=== PATIENT | male | born 1995 | race Caucasian/White ===

== ENCOUNTER 2018-06-09 21:44 | Emergency (ER) | payer OTHER ==
--- NOTE | 2018-06-09 23:19 | EDPHY ---
General - History Smoking Status: Never smoked Time Seen by Provider: 06/09/18 22:20 Narrative: CLINICAL IMPRESSION: Right thumb laceration x2 ASSESSMENT/PLAN: 22-year-old male presents to the emergency department with 2 lacerations to the right thumb sustained when opening a beer bottle tonight. Full range of motion of the thumb, distal 2 point discrimination intact, no evidence of neurovascular injury, tetanus up-to-date. No evidence of retained foreign body on exam. Wound repaired as per chart notes below. Wound care discussed, signs and symptoms of infection reviewed, warning signs return to ED sooner outlined in discharge. DIFFERENTIAL DIAGNOSIS: includes but not limited to laceration of tendon or vascular structure, underlying fracture, laceration with retained FB ED PROCECURES: Laceration Repair - right thumb 1. Verbal consent obtained by patient. Risks discussed, including but not limited to infection, pain, retained foreign body, need for additional repair, poor cosmetic result, tendon damage, nerve damage, poor wound healing, vascular damage. Alternatives to repair discussed. [place] protocol used to establish correct patient, procedure, equipment, accounting support specialist, and site. Anesthesia obtained by digital nerve block at 1st MCP joint Anesthetized with 0.5% bupivacaine without epinephrine Laceration location right thumb, length 1.5 cm, depth 3 mm, Repair type simple. Patient was prepped and draped in usual sterile fashion. Hemostasis achieved with direct pressure. Wound explored through full range of motion and entire depth of wound probed and visualized with gloved finger. No suspicion for nerve damage, tendon damage, underlying fracture, vascular damage, foreign body, or contamination. Area was cleansed with Shur-Clens and irrigated with sterile saline as per protocol. No foreign body or material removed. Repair method 5-0 Prolene sutures, simple interrupted. 3 sutures placed. Well aligned, closely approximated. wound was dressed with bacitracin and bandage. Patient tolerated well with no immediate complications. Wound care: Clean and dry x 24 hours, gently clean with soap and water, cover with topical antibiotic ointment/bandage. Suture/Staple removal: 8-10 Days Laceration Repair - right thumb 2. Verbal consent obtained by patient. Risks discussed, including but not limited to infection, pain, retained foreign body, need for additional repair, poor cosmetic result, tendon damage, nerve damage, poor wound healing, vascular damage. Alternatives to repair discussed. [place] protocol used to establish correct patient, procedure, equipment, accounting support specialist, and site. Anesthesia obtained by digital nerve block at 1st MCP joint Anesthetized with 0.5% bupivacaine without epinephrine Laceration location right thumb, length 1.5 cm, depth 3 mm, Repair type simple. Patient was prepped and draped in usual sterile fashion. Hemostasis achieved with direct pressure. Wound explored through full range of motion and entire depth of wound probed and visualized with gloved finger. No suspicion for nerve damage, tendon damage, underlying fracture, vascular damage, foreign body, or contamination. Area was cleansed with Shur-Clens and irrigated with sterile saline as per protocol. No foreign body or material removed. Repair method 5-0 Prolene sutures, simple interrupted. Four sutures placed. Well aligned, closely approximated. wound was dressed with bacitracin and bandage. Patient tolerated well with no immediate complications. Wound care: Clean and dry x 24 hours, gently clean with soap and water, cover with topical antibiotic ointment/bandage. Suture/Staple removal: 8-10 Days CHIEF COMPLAINT: Laceration HPI: 22-year-old [id number] male presents to the emergency department with 2 lacerations to the right thumb after cutting his hand on a beer bottle tonight. Patient reports no numbness or loss of sensation to the thumb. Tetanus is up-to-date. He goes to the [employer] and is here visiting friends. No other injuries PAST MEDICAL HISTORY: None reported Pertinent Past Surgical History: None reported Social History: Student at the [employer], tetanus up-to-date REVIEW OF SYSTEMS: All other systems negative Constitutional: No fever, no chills Musculoskeletal: No deformity, no joint pain Skin: 2 lacerations right thumb Neurological: No sensory loss or weakness, 2 point discrimination intact. PHYSICAL EXAM: General Appearance: Alert, oriented, appropriate for age, cooperative, NAD, well hydrated, non-toxic appearing, VSS, no hypoxia. Neurological: Alert and oriented x 3 Skin: 2 lacerations to the volar aspect of the right thumb. Both lacerations measuring 1.5 cm Musculoskeletal: Full range of motion of the thumb. No evidence of neurovascular compromise. Two-point discrimination intact. MEDICAL DECISION MAKING: Patient was seen independently. Secondary supervising physician at time of evaluation was Dr. velazco . Diagnosis: Right thumb laceration. New, requires workup Summary: See assessment and plan for summary of ED visit Patient Progress improved, stable for discharge . (Marko Avila) PHYSICIAN DOCUMENTATION: The patient was evaluated and managed by the Physician Commutator Inspector. My co- signature indicates that I have reviewed this chart and I agree with the findings and plan of care as documented. I am the secondary supervising physician. (Génesis Velazco) - Objective Vital Signs: Initial Vital Signs Temperature (C) 37.0 C 06/09/18 21:46 Heart Rate 96 06/09/18 21:46 Respiratory Rate 18 06/09/18 21:46 Blood Pressure 142/89 H 06/09/18 21:46 O2 Sat (%) 98 06/09/18 21:46 O2 Delivery Mode Room Air Allergies/Adverse Reactions: No Known Allergies Allergy (Unverified 06/09/18 21:48) Home Medications: Medication Instructions Recorded NK [No Known Home Meds] 06/09/18 Departure - Departure Disposition: Home, Routine, Self-Care Clinical Impression: Laceration of thumb Condition: Good Instructions: Laceration (ED) Additional Instructions: DISCHARGE INSTRUCTIONS FROM YOUR DOCTOR Thank you for visiting our emergency department today. You were treated by a physician dental office assistant today and your case was reviewed with our ED Attending physician. Please keep in mind that discharge from the emergency department does not mean that there is nothing wrong - it simply means that we have not identified an emergency condition that requires further evaluation or treatment in the hospital. You should always plan to follow up with primary care for re- evaluation of your condition in the next 2-3 days. If you have been referred to a specialist, please call as soon as possible (today or tomorrow) to schedule your follow up appointment at the appropriate time. [ PLEASE HAVE SUTURES/ALYSON REMOVED IN 8-10 DAYS. YOU CAN RETURN TO THE EMERGENCY DEPARTMENT OR YOUR PRIMARY CARE FOR SUTURE/STAPLE REMOVAL. AVOID SUBMERGING SUTURES/ALYSON UNDERWATER FOR PROLONGED PERIOD OF TIME UNTIL REMOVED. KEEP WOUND CLEAN AND DRY, COVER WITH ANTIBIOTIC OINTMENT AND BAND-AID. RETURN TO EMERGENCY DEPARTMENT FOR REDNESS, SWELLING, DISCHARGE, WARMTH TO THE SKIN, OR ANY OTHER CONCERNS FOR INFECTION. ] People present with illnesses and injuries in different ways, and it is always possible that we have missed something. You may always return for re-evaluation if symptoms worsen or if they are not improving or if you develop new/different symptoms. Again, thank you for choosing our emergency department. We hope that you feel better. Referrals: NONE *PRIMARY CARE P,. [Primary Care Provider] - As per Instructions Yenifer Dillard MD [Medical Doctor] - As per Instructions
[2018-06-09 23:28] VITALS: BP 122/63
== END 2018-06-09 23:29 | disposition home or self-care (01) ==
PROC: 0HQFXZZ Repair Right Hand Skin, External Approach (ICD-10-PCS; principal; 2018-06-09)
DX: S61.011A Laceration without foreign body of right thumb without damage to nail, initial encounter (principal); W25.XXXA Contact with sharp glass, initial encounter